=== PATIENT | male | born 1965 | race Caucasian/White ===

== ENCOUNTER 2023-06-29 00:31 | Emergency (ER) | payer OTHER, SELFPAY ==
[2023-06-29 00:32] VITALS: BP 170/98
[2023-06-29 00:48] VITALS: BP 161/87
[2023-06-29 00:50] VITALS: BMI 31.3
--- NOTE | 2023-06-29 00:59 | ED.GENMED ---
History of Present Illness
General
Chief Complaint: Cough
Source: patient
Exam Limitations: none
Time Seen by Provider: 06/29/23 00:38
Nursing documentation reviewed up to this point in time: agreed with
Travel History
Have you had any contact with someone who has COVID-19?: No
Do you have any symptoms of coronavirus? Fever > 100 degrees, chills, cough, shortness of breath, sore throat, loss of taste or smell, muscle aches, or headache?: Yes
Symptoms:: ABOVE
History of Present Illness
History of Present Illness:
This is a 58-year-old gentleman who has history of hypertension, hyperlipidemia who complains of 4-day history of cough, nasal congestion, generalized aches. Cough has been harsh, nonproductive, progressively worse over the past 4 days.
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
He was evaluated at urgent care yesterday and started on doxycycline and Tessalon Perles for URI. He states COVID/flu, strep testing yesterday at urgent care were negative.
He did suffer COVID URI New Year's Jeannine, recovered uneventfully.
He has had 4 or 5 COVID-19 vaccinations and did receive influenza vaccine this season.
Intermittent chills and aches, worse in the evening hours and much worse tonight. He has not checked his temperature at home but upon arrival to the ED oral temperature 98.9 and upon recheck 101.5 �F.
He has had no antipyretics today.
He denies chest pain, no neck nor back pain, no abdominal pain. He does admit to mild intermittent headache but no dizziness nor lightheadedness. Appetite has been fair, no nausea or vomiting, no diarrhea or constipation.
He denies leg pain or swelling.
No recent travel.
Lifelong non-smoker.
Past History
Past History
ED Past Medical History: GERD, HTN, Hypercholesterolemia, Psychiatric and Other (Sleep apnea)
ED Past Surgical History: Negative Cardiac or Cholecystectomy
Social History
Tobacco: Non-smoker
Alcohol: None
Drug: None
Personal:
Living: with family
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
Family History
Family History: Other (Mother with palpitations); Negative Early CAD
Phy Exam
Physical Exam
Physical Exam:
GENERAL: 58-year-old gentleman appears his stated age, awake and alert, appears mildly ill, frequent harsh nonproductive cough is noted. Able to speak in full sentences.
EYE: anicteric
NECK: Supple, nontender, no meningismus, no significant adenopathy. No JVD.
ENT: Facemask in place.
CARDIAC: Regular rate and rhythm. no murmur.
LUNGS: Frequent harsh nonproductive cough, otherwise no acute respiratory distress. No rales no rhonchi no wheezing.
ABDOMEN: Soft, nondistended, without focal tenderness, normoactive BS.
NEUROLOGICAL: Alert and oriented x3, no focal neuro deficits. Gait is steady.
SKIN: Warm and dry, normal color, skin intact. No rash.
MUSCULOSKELETAL: No C/C/E. peripheral pulses are full and equal b/l. No palpable tenderness.
PSYCH: Normal and appropriate interaction.
Course
Orders/Labs/Results
Orders:
Orders
06/29/23 00:43
Electrocardiogram (*1) Urgent
Reason for Study: Chest Pain
EKG- Treatment ONCE
06/29/23 00:55
COVID-19 Antigen Urgent
Source: Nasal Swab
INF RAPID [Influenza A+B Rapid Molecular] Urgent
LISBET Source: Nasal Swab
Specimen Description:
06/29/23 01:05
Acetaminophen [Tylenol] 1,000 mg PO NOW STA
Ibuprofen [Motrin] 800 mg PO NOW STA
Ipratropium/Albuterol Sulfate [Duoneb] 3 ml INH R NOW STA
CR Chest - 2 Views Urgent
Comment:
Reason For Exam: COUGH, FEVER x 4 days
Vital Signs
Initial and Last Documented VS:
Initial Vital Signs
Temp Pulse Resp BP Pulse Ox
98.9 F 112 22 170/98 95
06/29/23 00:32 06/29/23 00:32 06/29/23 00:32 06/29/23 00:32 06/29/23 00:32
Last Documented Vital Signs
Temp Pulse Resp BP Pulse Ox
100.6 F H 109 16 143/77 96
06/29/23 02:21 06/29/23 01:30 06/29/23 01:30 06/29/23 01:00 06/29/23 02:30
MDM/Problems Addressed
Differential Diagnosis Includes:
Patient presents with acute URI accompanied with moderate fever.
Overall nontoxic in appearance.
Moderate harsh nonproductive cough is noted, otherwise no respiratory distress.
Concern for acute bronchitis, pneumonia. Will recheck COVID-19 and influenza for completeness sake.
History of hypertension, hyperlipidemia but no history of CAD nor valvular disease nor cardiomyopathy. With acute fever, clear lung farfan, CHF is unlikely.
Clinically appears euvolemic, no GI symptoms.
At this point no indication for laboratory studies other than COVID and influenza testing.
Will check chest x-ray assess for potential pneumonia.
Will give DuoNeb nebulizer and treat fever with Tylenol and ibuprofen.
Chronic conditions affecting care: HTN and Other (Hyperlipidemia)
*Radiology
Radiology exam reviewed: preliminary read by ED provider (Chest x-ray shows fine/lacy linear infiltrate inferior aspect of the right upper lobe. New compared to previous film 2018.)
*Pulse Oximetry
Patient hypoxic: no
*EKG
Interpreted by ED Provider?: Yes
Interpretation: normal
Comparison EKG: no changes (Unchanged from previous August 2017 save her heart rate has increased from 86 to now 100)
Rate: normal
Rhythm: sinus
[place]: normal axis
Interval: normal interval
QRS Pattern: normal QRS
Ischemia: no ischemia
*Critical Care Note
Total Time (30-74mins, 75-104mins- exclusive of procedures): Not Applicable
Update Note
Update Note:
06/29/2023 0243 AM
Fever dissipating after Tylenol and ibuprofen.
Cough has markedly improved after nebulizer treatment. Patient resting comfortably. Respirations are easy nonlabored.
Chest x-ray shows a hazy linear infiltrate inferior aspect of the right upper lobe. This is consistent with community-acquired pneumonia and patient was started on doxycycline June 27. Doxycycline is one of the drugs of choice for
community-acquired pneumonia and recommend he continue this until finished.
COVID and influenza testing are negative.
Will add albuterol inhaler for as needed cough.
Continue Tessalon as needed for cough as well.
Discussed importance of remaining well-hydrated on a daily basis.
Continue ibuprofen 800 mg as needed for fever, aches.
Prompt follow-up with PCP for recheck.
Return precautions discussed.
ED Attending Note
-
Portions of this chart may have been created with voice recognition software.� Occasional wrong word or��sound alike� substitutions may have occurred due to the inherent limitations of voice recognition software.
Discharge Plan
Departure
Patient Disposition: Home (Routine Discharge)
Date of Disposition: 06/29/23
Time of Disposition: 02:45
Patient with high blood pressure during this ER visit?: No
Condition: Good
Covid-19: Negative COVID-19
Discharge Problem:
Community acquired pneumonia
Instructions: Pneumonia, Adult (DC)
Prescriptions:
New
albuterol sulfate [ProAir HFA] 90 mcg/actuation Hfa Aerosol Inhaler
2 puff INHALATION Q4HPRN PRN (Reason: shortness of breath/cough) Qty: 90 0RF
Rx Instructions:
Dispense with spacer
No Action
doxycycline hyclate 100 mg Capsule
100 mg PO BID
sertraline 100 mg Tablet
100 mg PO DAILY
benzonatate 100 mg Capsule
100 mg PO TID PRN (Reason: cough)
lansoprazole [Prevacid 24Hr] 15 mg Capsule,Delayed Release(Dr/Ec)
15 mg PO DAILYPRN PRN (Reason: heartburn)
rosuvastatin 10 mg Tablet
10 mg PO DAILY
amlodipine
PO DAILY
Referrals:
Bobby Hernandez, [Family Provider] - Call in 1-3 days for appt
Interventions
Interventions:
*Risk Screen - Suicide Last Done: 06/29/23 00:32
*General Assessment Last Done: 06/29/23 01:35
*Neglect/Abuse Screening Last Done: 06/29/23 00:32
ED- Fall Risk Assessment Last Done: 06/29/23 01:20
*ED COVID-19 Vaccine History Last Done: 06/29/23 00:51
ED- Pulmonary Assessment Last Done: 06/29/23 01:38
[2023-06-29 01:00] VITALS: BP 143/77
[2023-06-29] MEDS: TYLENOL 1000 MG PO (01:14)
[2023-06-29] MEDS: MOTRIN 800 MG PO (01:14)
[2023-06-29] MEDS: DUONEB 3 ML INH (01:15)
[2023-06-29 01:17] LABS: COVID-19 Antigen Negative (Negative)
[2023-06-29 02:40] VITALS: BP 140/84
[2023-06-29 02:50] VITALS: BP 140/84
== END 2023-06-29 02:50 | disposition home or self-care (01) ==
LOC: EMR 00:31
PROVIDERS: EMERGENCY PHYSICIAN Emergency Medicine; FAMILY PHYSICIAN Family Medicine
DX: J18.9 Pneumonia, unspecified organism (principal); K21.9 Gastro-esophageal reflux disease without esophagitis; I10 Essential (primary) hypertension; E78.00 Pure hypercholesterolemia, unspecified; R05.9 Cough, unspecified; G47.30 Sleep apnea, unspecified; Z90.49 Acquired absence of other specified parts of digestive tract
CPT/HCPCS: 99283; 94640; 71046; 87502; 87811; 93005

== ENCOUNTER → 2023-08-13 16:29 | Outpatient (REF) | payer OTHER, SELFPAY | LOC: HWRAD 16:29 | PROVIDERS: ATTENDING PHYSICIAN Family Medicine | DX: J15.8 Pneumonia due to other specified bacteria (principal) | CPT/HCPCS: 71046 ==

== ENCOUNTER 2023-10-18 22:20 | Emergency (ER) | payer OTHER, SELFPAY ==
[2023-10-18 22:22] VITALS: BP 164/112
--- NOTE | 2023-10-18 23:01 | ED.GENMED ---
History of Present Illness
General
Chief Complaint: Abdominal Symptoms
Time Seen by Provider: 10/18/23 22:38
Travel History
Have you had any contact with someone who has COVID-19?: No
Do you have any symptoms of coronavirus? Fever > 100 degrees, chills, cough, shortness of breath, sore throat, loss of taste or smell, muscle aches, or headache?: No
History of Present Illness
History of Present Illness:
58-year-old male with history of hypertension presents to the emergency department for evaluation of multiple recurrent episodes of vomiting and diarrhea. Most recently had episodes earlier today. He states for the past month he has these episodes
frequently lasting approximately 24 hours before spontaneously resolving. States that approximate 15 years ago he had a parasite and his symptoms seem somewhat similar. He has had watery diarrhea frequently as well. States that he underwent an
endoscopy and colonoscopy by an outside call or contact centre operator earlier this week that showed no pathology. No prior intra-abdominal surgeries. Denies any bloody diarrhea.
Past History
Past History
ED Past Medical History: GERD, HTN, Hypercholesterolemia, Psychiatric and Other (Sleep apnea)
ED Past Surgical History: Negative Cardiac or Cholecystectomy
Social History
Tobacco: Non-smoker
Alcohol: None
Drug: None
Personal:
Living: with family
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
Family History
Family History: Other (Mother with palpitations); Negative Early CAD
Review of Systems
Review of Systems
Allergies reviewed?: Yes
All Other Systems: ROS reviewed and negative except as documented in HPI and ROS
Phy Exam
Physical Exam
Physical Exam:
GEN: Well appearing, NAD, WDWN
HEENT: Oral mucosa moist, no scleral icterus
Cardiac: Regular rate and rhythm, no murmurs
Lung: No respiratory distress, no tachypnea, clear to auscultation
Abdomen: Soft, minimal epigastric tenderness, negative Rust sign, no rigidity or peritoneal signs
MSK: No gross deformity or injuries
Skin: Good color, no pallor or jaundice, no rashes
Neuro: AO x3, moves all extremities freely
Psych: Calm, cooperative
Course
Orders/Labs/Results
Orders:
Orders
10/18/23 23:01
0.9% Sodium Chloride 1000 ml [Nss] 1,000 ml IV BOLUS
Ondansetron Injectable [Zofran] 4 mg IV NOW STA
10/18/23 23:09
Complete Blood Count/With Diff Urgent
Comprehensive Metabolic Panel Urgent
Lipase Urgent
10/18/23 23:15
Urinalysis Reflex To Culture Urgent
Date Specimen was Collected: 10/18/23
Time Specimen was Collected: 23:12
Urine Microscopic Reflex Cult Urgent
Abnormal Lab Results
10/18/23 10/18/23
23:09 23:15
WBC 13.8 H 10^3/uL
(4.8-10.8)
RBC 4.67 L 10^6/uL
(4.70-6.10)
MCH 31.5 H pg
(27.0-31.0)
Abs Immat Gran (auto) 0.1 H 10^3/uL
(0-0.05)
Absolute Neuts (auto) 10.8 H 10^3/uL
(1.4-6.5)
Absolute Monos (auto) 1.4 H 10^3/uL
(0.1-0.6)
Neutrophils % 77.9 H %
(42.2-75.2)
Lymphocytes % 10.7 L %
(20.5-51.1)
Monocytes % 10.2 H %
(1.7-9.3)
Carbon Dioxide 21 L mmol/L
(22-30)
BUN 22 H mg/dl
(9-20)
Glucose 111 H mg/dl
(70-99)
Urine Ketones Trace A
(Negative)
Urine Bilirubin 1+ A
(Negative)
Urine Albumin (Reflex) 2+ A
(Neg - Trace)
10/18/23 23:09
10/18/23 23:09
Vital Signs
Initial and Last Documented VS:
Initial Vital Signs
Temp Pulse Resp BP Pulse Ox
99.9 F 120 22 164/112 94
10/18/23 22:22 10/18/23 22:22 10/18/23 22:22 10/18/23 22:22 10/18/23 22:22
Last Documented Vital Signs
Temp Pulse Resp BP Pulse Ox
98.9 F 96 16 126/82 94
10/18/23 23:07 10/19/23 00:00 10/18/23 23:07 10/19/23 00:00 10/19/23 00:00
MDM/Problems Addressed
MDM/Problems Addressed:
Patient is clinically well tolerating p.o. fluids. His labs. He does not have concern for acute abdominal pathology thus I do not suspect there is any indication for CT scan at this time particular given lack of significant pain. Patient was
unsuccessful in providing stool specimens for testing here in the emergency department. Will send for outpatient stool culture and ova/parasite although we would find parasitic invasion highly unlikely given his lack of recent travel or fresh water
intake. Continued outpatient follow-up with gastroenterology
*Critical Care Note
Total Time (30-74mins, 75-104mins- exclusive of procedures): Not Applicable
ED Attending Note
-
Portions of this chart may have been created with voice recognition software.� Occasional wrong word or��sound alike� substitutions may have occurred due to the inherent limitations of voice recognition software.
Discharge Plan
Departure
Patient Disposition: Home (Routine Discharge)
Date of Disposition: 10/19/23
Time of Disposition: 00:20
Patient with high blood pressure during this ER visit?: No
Discharge Problem:
Nausea, vomiting, and diarrhea
Instructions: Diarrhea in teens and adults
Prescriptions:
New
ondansetron 4 mg tablet,disintegrating
4 mg PO TIDPRN PRN (Reason: nausea/vomiting) Qty: 20 0RF
No Action
sertraline 100 mg Tablet
100 mg PO DAILY
lansoprazole [Prevacid 24Hr] 15 mg Capsule,Delayed Release(Dr/Ec)
15 mg PO DAILY
rosuvastatin 10 mg Tablet
10 mg PO DAILY
amlodipine 10 mg Tablet
10 mg PO DAILY
Referrals:
Cole Cooley, [Family Provider] -
Activity Restrictions/Additional Instructions:
Return your test results to the hospital or [facility] ASUNCION
Test results will take between 2-4 days typically
Follow up with gastroenterology
If pain worsens, you develop a fever, or you develop persistent/non resolving vomiting, return to the ER
Interventions
Interventions:
*Risk Screen - Suicide Last Done: 10/18/23 22:22
*General Assessment Last Done: 10/18/23 23:12
*Neglect/Abuse Screening Last Done: 10/18/23 22:22
ED- Fall Risk Assessment Last Done: 10/18/23 23:22
*ED COVID-19 Vaccine History Last Done: 10/18/23 22:36
*Nursing Disposition Last Done: 10/19/23 00:41
TC-Mbhwyd-Cvxkcbcfiw Assessment Last Done: 10/18/23 23:22
Discharge Date and Time
Discharge Date/Time: 10/19/23 00:41
Print Language: CZECH
[2023-10-18 23:07] VITALS: BP 135/90
[2023-10-18 23:13] LABS: % Basophils 0.1 % (0-2); % Eosinophils 0.7 % (0-6); % Immature Granulocytes 0.4 % (0-0.5); % Lymphocytes 10.7 % (20.5-51.1); % Monocytes 10.2 % (1.7-9.3); % Neutrophils 77.9 % (42.2-75.2); Absolute Eosinophils 0.1 10^3/uL (0-0.7); Absolute Immature Granulocytes 0.1 10^3/uL (0-0.05); Absolute Lymphocytes 1.5 10^3/uL (1.2-3.4); Absolute Monocytes 1.4 10^3/uL (0.1-0.6); Absolute Neutrophils 10.8 10^3/uL (1.4-6.5); Hematocrit 40.7 % (39.0-52.0); Hemoglobin 14.7 g/dL (13.0-18.0); Mean Corp Hgb Conc. 36.1 g/dL (33.0-37.0); Mean Corpuscular Hgb 31.5 pg (27.0-31.0); Mean Corpuscular Volume 87.2 fL (80.0-94.0); Nucleated Red Blood Cells % 0 % (-); Platelet Count 293 10^3/uL (130-400); Red Blood Cell Count 4.67 10^6/uL (4.70-6.10); Red Cell Dist. Width 13.1 % (11.5-14.5); White Blood Cell Count 13.8 10^3/uL (4.8-10.8)
[2023-10-18] MEDS: ZOFRAN 4 MG IV (23:19)
[2023-10-18] MEDS: NSS 1000 IV (23:19)
[2023-10-18 23:21] LABS: Urine Albumin 2+ (Neg - Trace); Urine Bilirubin 1+ (Negative); Urine Character Clear (Clear); Urine Color Amber; Urine Glucose Negative (Negative); Urine Ketone Trace (Negative); Urine Leukocyte Negative (Negative); Urine Nitrite Negative (Negative); Urine Occult Blood Negative (Negative); Urine Specific Gravity 1.025 (<1.030); Urine Urobilinogen Negative (Neg - 1+)
--- NOTE | 2023-10-18 23:23 | EDRN ---
Pt says 1 month ago pt was very queasy. Three weeks ago pt had vomiting and diarrhea x 24 hours. Queasy feeling in abdomen has continued every day since. Pt had a colonoscopy and endoscopy on Thursday and was told everything was normal. Pt adds he
was diagnosed with a parasite 15 years ago - at the time he was visiting his mother in a alf. Pt feels same now as he did when he was diagnosed with a parasite. No recent travel. This morning pt felt queasy, ran errands, came back home
and says 'I just haven't felt right.' Last episode diarrhea and vomiting was 0 at the same time. No blood noted in either. Pt last ate at 1530 yesterday. Pt had chills. Pt denies cp, sob, fever/cough, urinary symptoms, dizziness, weakness.
[2023-10-18 23:31] LABS: Urine Mucus Few
[2023-10-18 23:32] LABS: ALT (SGPT) 35 U/L (0-50); AST (SGOT) 30 U/L (17-59); Albumin 4.8 g/dl (3.5-5.0); Alkaline Phosphatase 66 U/L (38-126); Blood Urea Nitrogen 22 mg/dl (9-20); Calcium 9.6 mg/dl (8.4-10.2); Carbon Dioxide 21 mmol/L (22-30); Chloride 106 mmol/L (98-107); Estimated Creatinine Clearance 99 ml/min; Glucose 111 mg/dl (70-99); Lipase 98 U/L (23-300); Potassium 3.8 mmol/L (3.5-5.1); Sodium 140 mmol/L (135-145); Total Bilirubin 1.2 mg/dl (0.2-1.3); Total Protein 8.2 g/dl (6.3-8.2); eGFR > 60.00
[2023-10-18 23:33] LABS: Urine Red Blood Cell None Seen /HPF (0-2)
[2023-10-18 23:34] LABS: Urine Granular Cast 0-2 /LPF (0)
[2023-10-19] VITALS: BP 126/82
--- NOTE | 2023-10-19 00:37 | EDRN ---
Pt given stool specimen container with outpatient lab order
== END 2023-10-19 00:41 | disposition home or self-care (01) ==
LOC: EMR 22:20
PROVIDERS: Physician Assistant; EMERGENCY PHYSICIAN Emergency Medicine; FAMILY PHYSICIAN Family Medicine
DX: R11.2 Nausea with vomiting, unspecified (principal); R19.7 Diarrhea, unspecified; R10.816 Epigastric abdominal tenderness; I10 Essential (primary) hypertension; E78.00 Pure hypercholesterolemia, unspecified; K21.9 Gastro-esophageal reflux disease without esophagitis; G47.30 Sleep apnea, unspecified; Z88.0 Allergy status to penicillin
CPT/HCPCS: 99284; 96374; 96361; 80053; 81003; 81015; 83690; 85025

== ENCOUNTER → 2023-10-22 08:46 | Outpatient (REF) | payer OTHER, SELFPAY | LOC: REG 08:46 | PROVIDERS: ATTENDING PHYSICIAN Emergency Medicine; FAMILY PHYSICIAN Family Medicine | DX: R19.7 Diarrhea, unspecified (principal) | CPT/HCPCS: 36415; 87045; 87046; 87328; 87329; 87427 ==

== ENCOUNTER → 2024-06-02 11:05 | Outpatient (REF) | payer OTHER, SELFPAY | LOC: HWRAD 11:05 | PROVIDERS: ATTENDING PHYSICIAN Family Medicine | DX: R35.0 Frequency of micturition (principal) | CPT/HCPCS: 76770 ==

== ENCOUNTER 2024-11-07 14:46 | Emergency (ER) | payer OTHER, SELFPAY ==
[2024-11-07 14:48] VITALS: BP 149/92
[2024-11-07 15:06] LABS: Hematocrit 44.9 % (39.0-52.0); Hemoglobin 15.7 g/dL (13.0-18.0); Mean Corp Hgb Conc. 35.0 g/dL (33.0-37.0); Mean Corpuscular Volume 89.6 fL (80.0-94.0); Nucleated Red Blood Cells % 0 % (-); Platelet Count 294 10^3/uL (130-400); Red Cell Dist. Width 13.0 % (11.5-14.5)
[2024-11-07 15:23] LABS: ALT (SGPT) 23 U/L (0-50); AST (SGOT) 19 U/L (17-59); Albumin 5.0 g/dl (3.5-5.0); Alkaline Phosphatase 68 U/L (38-126); Blood Urea Nitrogen 21 mg/dl (9-20); Calcium 9.5 mg/dl (8.4-10.2); Carbon Dioxide 20 mmol/L (22-30); Chloride 112 mmol/L (98-107); Glucose 100 mg/dl (70-99); Lipase 123 U/L (23-300); Potassium 4.2 mmol/L (3.5-5.1); Sodium 141 mmol/L (135-145); Total Protein 8.3 g/dl (6.3-8.2); eGFR > 60.00
--- NOTE | 2024-11-07 16:35 | ED.GENMED ---
History of Present Illness
General
Chief Complaint: Abdominal Symptoms
Time Seen by Provider: 11/07/24 16:11
History of Present Illness
History of Present Illness:
Patient presents to the emergency department with abdominal pain nausea and vomiting. Symptoms started Thursday. He reports numerous episodes of vomiting and diarrhea. Complains of diffuse abdominal pain. No fevers or chills. No bloody stools.
States he has a history of recurrent abdominal pain is seeing GI for this in the past. He has been diagnosed with GERD.
Past History
Past History
ED Past Medical History: GERD, HTN, Hypercholesterolemia, Psychiatric and Other (Sleep apnea)
ED Past Surgical History: Negative Cardiac or Cholecystectomy
Social History
Tobacco: Non-smoker
Alcohol: None
Drug: None
Personal:
Living: with family
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
Family History
Family History: Other (Mother with palpitations); Negative Early CAD
Phy Exam
Physical Exam
Physical Exam:
GENERAL APPEARANCE: NAD, well developed/ well nourished
EYES lids/conjunctiva normal
EARS/NOSE/THROAT Mucous membranes moist,
HEAD/NECK normocephalic atraumatic, neck is supple.
RESPIRATORY respiratory effort normal, speaks in full sentences, no accessory muscle use. Lungs clear to auscultation without rhonchi, wheezes, rales
CARDIAC Regular rate and rhythm, no edema.
ABDOMINAL mild tenderness diffusely worse in the left lower quadrant. Abdomen is soft and nondistended.
MUSCLES/EXTREMITIES No abnormal range of motion, no swelling.
SKIN Warm, pink and dry. No rashes
NEUROLOGICAL Speech is clear and appropriate. Normal level of consciousness. 5/5 strength in all extremities.
PSYCH Normal mood and affect. Judgement/competence is appropriate
Course
Orders/Labs/Results
Orders:
Orders
11/07/24 14:53
Complete Blood Count/With Diff Urgent
Comprehensive Metabolic Panel Urgent
Lipase Urgent
11/07/24 16:34
0.9% Sodium Chloride 1000 ml [Nss] 1,000 ml IV BOLUS
Ketorolac [Toradol] 15 mg IV NOW STA
Ondansetron Injectable [Zofran] 4 mg IV NOW STA
11/07/24 16:46
CT Abd/pelvis W Iv Cont Urgent
Comment:
Reason For Exam: LLQ pain
Abnormal Lab Results
11/07/24
14:53
WBC 11.3 H 10^3/uL
(4.8-10.8)
MCH 31.3 H pg
(27.0-31.0)
Absolute Neuts (auto) 7.0 H 10^3/uL
(1.4-6.5)
Absolute Monos (auto) 1.4 H 10^3/uL
(0.1-0.6)
Monocytes % 12.3 H %
(1.7-9.3)
Chloride 112 H mmol/L
(98-107)
Carbon Dioxide 20 L mmol/L
(22-30)
BUN 21 H mg/dl
(9-20)
Glucose 100 H mg/dl
(70-99)
Total Protein 8.3 H g/dl
(6.3-8.2)
11/07/24 14:53
11/07/24 14:53
Vital Signs
Initial and Last Documented VS:
Initial Vital Signs
Temp Pulse Resp BP Pulse Ox
98.0 F 110 20 149/92 98
11/07/24 14:48 11/07/24 14:48 11/07/24 14:48 11/07/24 14:48 11/07/24 14:48
Last Documented Vital Signs
Temp Pulse Resp BP Pulse Ox
98.0 F 79 16 113/69 99
11/07/24 14:48 11/07/24 19:35 11/07/24 19:35 11/07/24 19:35 11/07/24 19:35
*Pulse Oximetry
SaO2: 98
Oxygen Mode of Delivery: Room air
Patient hypoxic: no
*Critical Care Note
Total Time (30-74mins, 75-104mins- exclusive of procedures): Not Applicable
ED Attending Note
ED Attending Note
ED Attending Note:
CT scan with mild chronic colitis, gastritis
labs with slight leukocytosis, no evidence of severe dehydration on chemistry
given IVF and antiemetic with improvement in symptoms
possibly related to chronic GI issues +/- medication side effect (Mounjaro)
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
-
Portions of this chart may have been created with voice recognition software.� Occasional wrong word or��sound alike� substitutions may have occurred due to the inherent limitations of voice recognition software.
Discharge Plan
Departure
Patient Disposition: Home (Routine Discharge)
Date of Disposition: 11/07/24
Time of Disposition: 19:57
Patient with high blood pressure during this ER visit?: Yes
Discharge Problem:
Chronic colitis, Gastritis
Instructions: Gastritis - Discharge instructions, Diarrhea in adults - ED discharge instructions
Prescriptions:
New
ondansetron 4 mg tablet,disintegrating
4 mg PO TIDPRN PRN (Reason: nausea/vomiting) Qty: 20 0RF
No Action
sertraline 100 mg Tablet
100 mg PO DAILY
lansoprazole [Prevacid 24Hr] 15 mg Capsule,Delayed Release(Dr/Ec)
15 mg PO DAILY
rosuvastatin 10 mg Tablet
10 mg PO DAILY
amlodipine 10 mg Tablet
10 mg PO DAILY
ondansetron 4 mg tablet,disintegrating
4 mg PO TIDPRN PRN (Reason: nausea/vomiting) Qty: 20 0RF
Referrals:
Cole Cooley, DO [Family Provider, Family Practice]
Activity Restrictions/Additional Instructions:
Please follow up with your GI doctor for outpatient follow up
return to ER with new or worsening symptoms
Interventions
Interventions:
*Risk Screen - Suicide Last Done: 11/07/24 16:52
*General Assessment Last Done: 11/07/24 14:48
*Neglect/Abuse Screening Last Done: 11/07/24 16:52
*ED- Fall Risk Assessment Last Done: 11/07/24 16:52
*ED COVID-19 Vaccine History Last Done: 11/07/24 16:52
*Nursing Disposition Last Done: 11/07/24 20:24
MQ-Oxzfvs-Xpvosngmdn Assessment Last Done: 11/07/24 17:07
Discharge Date and Time
Discharge Date/Time: 11/07/24 20:25
Print Language: TAMAZIGHT
[2024-11-07] MEDS: NSS 1000 IV (16:59)
[2024-11-07] MEDS: ZOFRAN 4 MG IV (17:01)
[2024-11-07 17:05] VITALS: BP 128/74
[2024-11-07 19:35] VITALS: BP 113/69
== END 2024-11-07 20:25 | disposition home or self-care (01) ==
LOC: EMR 14:46
PROVIDERS: Emergency Medicine; EMERGENCY PHYSICIAN Emergency Medicine; FAMILY PHYSICIAN Family Medicine
DX: K29.00 Acute gastritis without bleeding (principal); K52.9 Noninfective gastroenteritis and colitis, unspecified; K21.9 Gastro-esophageal reflux disease without esophagitis; I10 Essential (primary) hypertension; G47.30 Sleep apnea, unspecified; E78.00 Pure hypercholesterolemia, unspecified; Z88.0 Allergy status to penicillin
CPT/HCPCS: 99284; 96361; 96374; 74177; 80053; 83690; 85025; Q9967

== ENCOUNTER 2024-11-08 23:35 | Emergency (ER) | payer OTHER, SELFPAY ==
[2024-11-08 23:40] VITALS: BP 125/82
[2024-11-08 23:53] LABS: Hematocrit 40.0 % (39.0-52.0); Hemoglobin 14.1 g/dL (13.0-18.0); Mean Corp Hgb Conc. 35.3 g/dL (33.0-37.0); Mean Corpuscular Volume 89.3 fL (80.0-94.0); Platelet Count 256 10^3/uL (130-400); Red Cell Dist. Width 13.2 % (11.5-14.5)
[2024-11-09 00:24] LABS: Blood Urea Nitrogen 19 mg/dl (9-20); Calcium 9.3 mg/dl (8.4-10.2); Carbon Dioxide 19 mmol/L (22-30); Chloride 114 mmol/L (98-107); Glucose 102 mg/dl (70-99); Potassium 3.5 mmol/L (3.5-5.1); Sodium 144 mmol/L (135-145); eGFR > 60.00
[2024-11-09 01:37] VITALS: BMI 26.5
[2024-11-09 01:38] VITALS: BP 118/81
--- NOTE | 2024-11-09 04:18 | ED.GENMED ---
History of Present Illness
General
Chief Complaint: Abdominal Symptoms
Source: patient
Exam Limitations: none
Time Seen by Provider: 11/09/24 04:18
Nursing documentation reviewed up to this point in time: agreed with
History of Present Illness
History of Present Illness:
Note:
CHIEF COMPLAINT(S)
Diarrhea.
HISTORY OF PRESENT ILLNESS
The patient is a 59-year-old male with a pmh of ulcerative colitis, GERD, Barett's esophagus,anxiety, diabetes, who presents with intermittent abdominal cramping and non-stop diarrhea. Contrary to the triage note, patient is not currently
experiencing abdominal pain. He reports that he experiences some cramping that is resolved with bowel movements. The patient was evaluated the previous night for the same symptoms and instructed to return if symptoms persisted. The patient reports
approximately 10 episodes of watery diarrhea today, describing it as 'pure water,' and states it began after consuming a turkey sandwich. Patient has been able to tolerate oral intake of food and drink without nausea or vomiting and has been eating
3 meals per day. The patient denies fever and blood in stools, chest pain, shortness of breath, rectal pain, burning with urination, urinary frequency, dark tarry stools.
There is a past medical history of ulcerative colitis diagnosed at age 19, but the patient reports no issues or treatment for the past 40 years and does not really follow with GI any more other than for screening colonoscopy. The patient had a
colonoscopy approximately 10 months ago, showing no active ulcerative colitis. The patient also recalls a parasitic infection 16 years ago, acquired potentially from a penitentiary, and describes current symptoms as reminiscent of that experience.
The patient is concerned about possible infections such as E. coli, Salmonella, or parasites but has not had recent antibiotic use. Patient states that he overall feels dehydrated.
PHYSICAL EXAM
General: Patient is well appearing and in no acute distress; non-toxic
Skin: Warm and dry, no rashes or lesions
Head: Normocephalic, atraumatic
Eyes: Sclera non-icteric. EOMs intact.
Cardiac: Regular rate and rhythm, no murmurs
Peripheral Vascular: No lower extremity swelling or edema
Pulm: Normal respiratory effort, no wheezes, rales, or rhonchi
Abdomen: Abdomen is soft and non-distended and non-tender to palpation
Neuro: CN II-XII intact, no focal neurologic deficits.
Psychiatric: Appropriate mood and affect.
- Nursing notes reviewed and vital signs reviewed.
PLAN
- Obtain stool sample to test for infections such as parasites, E. coli, or Salmonella.
- Administer intravenous fluids to rehydrate the patient.
- Consider prescribing antibiotics
DIFFERENTIAL DIAGNOSIS
The Differential Diagnosis includes, in no particular order and is not limited to:
1. Infectious gastroenteritis
2. Ulcerative colitis flare-up
3. Parasitic infection
4. Irritable bowel syndrome
5. Food poisoning
6. Clostridioides difficile infection
7. Viral gastroenteritis
8. Small intestinal bacterial overgrowth
9. Crohns disease
10. Lactose intolerance
UPDATES
6:00 am---Patient feeling well during ER visit. When he stood up upon discharge to go have a bowel movement, patient stated that he felt an episode of lightheadedness and dizziness and feels 'weird'. Suspect possible presyncope episode from
vasovagal simulation from diarrhea. On my exam, he is well appearing in no acute distress. He denies abdominal pain. Will give more IV fluids. Case and treatment plan discussed with ED attending. Considering multiple days of diarrhea with multiple
bowel movements per day with no improvement, will trial abx upon discharge.
7:00 am--On reassessment, patient states he feels better but does experience some weakness and fatigue when he has multiple bowel movements. Patient states that he has aflac and states that he receives money if he is admitted to the hospital. I did
state that at this time, there is no indication for admission as patient is tolerating PO intake, is afebrile, has no abdominal pain, no dark tarry stools/rectal bleeding, lab work unremarkable with no signs of electrolyte derangement or severe
dehydration. Patient expressed understanding. Advised patient that he needs to follow up with his GI doctor. Stool studies sent off. Will trial for azithromycin to cover for common causes of infectious diarrhea. He tested negative for c diff today.
CT from yesterday shows mild chronic colitis in the sigmoid colon no signs of acute UC flare do not feel patient needs to be admitted for steroid induction.
7:54 am-- Patient was going to be discharged and he stated to nursing staff that he would like to rest longer and would not want to go home yet. I again explained to patient treatment with azithro as well as bed rest at home with plenty of fluids.
Patient expressed understanding and agrees again to be discharged.
CHART REVIEW
-reviewed ER physician documentation from 11/07/24
-patient also takes monjauro which may be contributing to his symptoms; gastritis found on ct scan yesterday may be contributing to intermittent pains
MDM/DISPOSITION
The patient is a 59-year-old male with a pmh of ulcerative colitis, GERD, Barett's esophagus,anxiety, diabetes, who presents with intermittent abdominal cramping and non-stop diarrhea. He was seen here last night for the same symptoms. See update
not above. Patient was rehydrated with IV fluids and feels improved. Will trial azithromycin. Stressed importance of follow up with GI doctor. No indication for admission at this time.
Past History
Past History
ED Past Medical History: GERD, HTN, Hypercholesterolemia, Psychiatric and Other (Sleep apnea)
ED Past Surgical History: Negative Cardiac or Cholecystectomy
Social History
Tobacco: Non-smoker
Alcohol: None
Drug: None
Personal:
Living: with family
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
Family History
Family History: Other (Mother with palpitations); Negative Early CAD
Phy Exam
Physical Exam
Physical Exam:
see hpi
Course
Orders/Labs/Results
Orders:
Orders
11/08/24 23:47
BMP [Basic Metabolic Panel] Urgent
Complete Blood Count/No Diff Urgent
11/09/24 04:35
0.9% Sodium Chloride 1000 ml [Nss] 1,000 ml IV BOLUS
11/09/24 04:56
Ova & Parasites Giardia/Crypto AG [Giardia/Cryptosporidium Ag] Urgent
LISBET Source: Feces/Stool
Specimen Description:
Date Specimen was Collected: 11/09/24
Time Specimen was Collected: 04:54
STOOL [C difficile Antigen & Toxins] Urgent
LISBET Source: Feces/Stool
Specimen Description:
Date Specimen was Collected: 11/09/24
Time Specimen was Collected: 04:54
Stool Culture Urgent
LISBET Source: Feces/Stool
Specimen Description:
Date Specimen was Collected: 11/09/24
Time Specimen was Collected: 04:54
11/09/24 05:57
0.9% Sodium Chloride 1000 ml [Nss] 1,000 ml IV BOLUS
Ketorolac [Toradol] 15 mg IV NOW STA
Abnormal Lab Results
11/08/24
23:47
WBC 11.4 H 10^3/uL
(4.8-10.8)
RBC 4.48 L 10^6/uL
(4.70-6.10)
MCH 31.5 H pg
(27.0-31.0)
Chloride 114 H mmol/L
(98-107)
Carbon Dioxide 19 L mmol/L
(22-30)
Glucose 102 H mg/dl
(70-99)
11/08/24 23:47
11/08/24 23:47
Vital Signs
Initial and Last Documented VS:
Initial Vital Signs
Temp Pulse Resp BP Pulse Ox
98.5 F 92 18 125/82 95
11/08/24 23:40 11/08/24 23:40 11/08/24 23:40 11/08/24 23:40 11/08/24 23:40
Last Documented Vital Signs
Temp Pulse Resp BP Pulse Ox
98 F 74 18 126/87 98
11/09/24 07:59 11/09/24 07:59 11/09/24 07:59 11/09/24 07:59 11/09/24 07:59
MDM/Problems Addressed
MDM/Problems Addressed:
Patient denies abdominal pain
*Pulse Oximetry
SaO2: 95
Oxygen Mode of Delivery: Room air
Patient hypoxic: no
*Critical Care Note
Total Time (30-74mins, 75-104mins- exclusive of procedures): Not Applicable
ED Attending Note
-
Portions of this chart may have been created with voice recognition software.� Occasional wrong word or��sound alike� substitutions may have occurred due to the inherent limitations of voice recognition software.
Discharge Plan
Departure
Patient Disposition: Home (Routine Discharge)
Date of Disposition: 11/09/24
Time of Disposition: 07:30
Patient with high blood pressure during this ER visit?: No
Condition: Good
Discharge Problem:
Diarrhea
Instructions: Diarrhea in teens and adults, BLOOD PRESSURE
Prescriptions:
New
azithromycin 500 mg tablet
500 mg PO DAILY 5 Days Qty: 5 0RF
No Action
sertraline 100 mg Tablet
100 mg PO DAILY
lansoprazole [Prevacid 24Hr] 15 mg Capsule,Delayed Release(Dr/Ec)
15 mg PO DAILY
rosuvastatin 10 mg Tablet
10 mg PO DAILY
amlodipine 10 mg Tablet
10 mg PO DAILY
ondansetron 4 mg tablet,disintegrating
4 mg PO TIDPRN PRN (Reason: nausea/vomiting) Qty: 20 0RF
Mounjaro 10 mg/0.5 mL Pen Injector
10 mg SC QWEEK
Patient Comments:
takes every thursday
Referrals:
Bobby Hernandez DO [Family Provider, Family Practice]
Activity Restrictions/Additional Instructions:
Azithromycin has been sent to your pharmacy. Please take 1 tablet once daily for 5 days.
You will receive a call regarding the results of your stool cultures.
PLEASE RETURN EMERGENCY DEPARTMENT SHOULD YOU DEVELOP CHEST PAIN, ABDOMINAL PAIN, INTRACTABLE NAUSEA OR VOMITING, FEVERS OR CHILLS, RECTAL BLEEDING, OR ANY OTHER SIGNS OR SYMPTOMS WORRISOME TO YOU.
Interventions
Interventions:
*Risk Screen - Suicide Last Done: 11/08/24 23:40
*General Assessment Last Done: 11/09/24 01:37
*Neglect/Abuse Screening Last Done: 11/08/24 23:40
*ED- Fall Risk Assessment Last Done: 11/09/24 01:37
*ED COVID-19 Vaccine History Last Done: 11/09/24 01:37
*Nursing Disposition Last Done: 11/09/24 07:59
[facility] Assessment Last Done: 11/09/24 01:39
Discharge Date and Time
Discharge Date/Time: 11/09/24 08:00
Print Language: [email or web address]
[2024-11-09 05:00] VITALS: BP 124/74
[2024-11-09] MEDS: NSS 1000 IV ×2 (05:02→06:08)
[2024-11-09 06:05] VITALS: BP 115/67
[2024-11-09] MEDS: TORADOL 15 MG IV (06:08)
[2024-11-09 07:57] VITALS: BP 126/87
[2024-11-09 07:59] VITALS: BP 126/87
== END 2024-11-09 08:00 | disposition home or self-care (01) ==
LOC: EMR 23:35
PROVIDERS: EMERGENCY PHYSICIAN Student in an Organized Health Care Education/Training Program; FAMILY PHYSICIAN Family Medicine
DX: R19.7 Diarrhea, unspecified (principal); E11.9 Type 2 diabetes mellitus without complications; E78.00 Pure hypercholesterolemia, unspecified; I10 Essential (primary) hypertension; G47.30 Sleep apnea, unspecified; Z87.19 Personal history of other diseases of the digestive system
CPT/HCPCS: 96374; 96361; 99284; 80048; 85027; 87045; 87046; 87077; 87324; 87328; 87329; 87427; 87449

== ENCOUNTER → 2024-11-17 07:59 | Outpatient (REF) | payer OTHER, SELFPAY | LOC: HWRAD 07:59 | PROVIDERS: ATTENDING PHYSICIAN Family Medicine | DX: D41.01 Neoplasm of uncertain behavior of right kidney (principal) | CPT/HCPCS: 76775 ==